=== PATIENT | female | born 1985 | race Caucasian/White ===

== ENCOUNTER 2018-11-20 11:38 | Outpatient (CLI) | payer MEDICAID | END 2018-11-20 13:35 | disposition home or self-care (01) | LOC: OBT 11:38 → L-D 11:40 → OBT 13:35 | DX: O36.8130 Decreased fetal movements, third trimester, not applicable or unspecified (principal); Z3A.33 33 weeks gestation of pregnancy | CPT/HCPCS: 76815; 76818 ==

== ENCOUNTER 2018-12-13 11:00 | Outpatient (CLI) | payer MEDICAID ==
[2018-12-13 13:47] LABS: ADD MAN DIFF? NO
[2018-12-13 13:52] LABS: WHITE BLOOD COUNT 6.2 10^3/ul (4.8-10.8)
[2018-12-13 13:52] LABS: BASOPHILS % 0.3 % (0.0-2.0); EOSINOPHILS % 0.6 % (0.0-7.0); HEMATOCRIT 38.3 % (37.0-47.0); HEMOGLOBIN 12.7 g/dl (12.0-16.0); LYMPHOCYTES # 1.6 10^3/ul (0.8-2.9); LYMPHOCYTES % 26.3 % (15.0-51.0); MEAN CORPUSCULAR HEMOGLOBIN 32.2 pg (29.0-33.0); MEAN CORPUSCULAR HGB CONC 33.2 g/dl (32.0-37.0); MEAN CORPUSCULAR VOLUME 97.2 fl (82.0-101.0); MEAN PLATELET VOLUME 11.1 fl (7.4-10.4); MONOCYTE # 0.6 10^3/ul (0.3-0.9); NEUTROPHIL # 3.8 10^3/ul (1.6-7.5); NEUTROPHILS % 61.8 % (39.0-77.0); PLATELET COUNT 179 10^3/UL (140-415); RED BLOOD COUNT 3.94 10^6/ul (4.20-5.40); RED CELL DISTRIBUTION WIDTH 13.1 % (11.5-14.5)
[2018-12-13 14:05] LABS: ADD UMIC YES; UR ASCORBIC ACID NEGATIVE (NEGATIVE); UR BACTERIA FEW /HPF (NONE SEEN); UR BILIRUBIN (Dip) NEGATIVE (NEGATIVE); UR BLOOD (Dip) NEGATIVE (NEGATIVE); UR CLARITY CLEAR (CLEAR); UR COLOR STRAW (YELLOW); UR GLUCOSE (Dip) NEGATIVE (NEGATIVE); UR KETONES (Dip) NEGATIVE (NEGATIVE); UR LEUKOCYTE ESTERASE (Dip) TRACE Leu/ul (NEGATIVE); UR NITRITE (Dip) NEGATIVE (NEGATIVE); UR RBC 0 /HPF (0-5); UR SPECIFIC GRAVITY (Dip) 1.002 (1.003-1.030); UR TOTAL PROTEIN (Dip) NEGATIVE (NEGATIVE); UR UROBILINOGEN (Dip) NEGATIVE (NEGATIVE); UR WBC 0 /HPF (0-5)
[2018-12-13 14:10] LABS: ALANINE AMINOTRANSFERASE 13 IU/L (13-69); ALBUMIN 3.4 g/dl (3.3-4.9); ALBUMIN/GLOBULIN RATIO 1.09; ALKALINE PHOSPHATASE 265 IU/L (42-121); ANION GAP 7 (5-13); ASPARTATE AMINO TRANSFERASE 25 IU/L (15-46); BILIRUBIN,INDIRECT 0.3 mg/dl (0-1.1); BILIRUBIN,TOTAL 0.3 mg/dl (0.2-1.3); BLOOD UREA NITROGEN 10 mg/dl (7-20); CALCIUM 9.1 mg/dl (8.4-10.2); CARBON DIOXIDE 25 mmol/L (21-31); CHLORIDE 105 mmol/L (97-110); CREATININE 0.48 mg/dl (0.44-1.00); Estimated GFR > 60 mL/min (>60); GLUCOSE 73 mg/dl (70-220); SODIUM 137 mmol/L (135-144); TOTAL PROTEIN 6.5 g/dl (6.1-8.1); URIC ACID 3.8 mg/dl (3.1-7.9)
[2018-12-13 14:11] LABS: POTASSIUM 4.1 mmol/L (3.5-5.1)
[2018-12-13 14:12] LABS: INR 0.87; PROTIME 11.9 Sec (11.9-14.9); PT RATIO 0.9
[2018-12-13 14:13] LABS: PARTIAL THROMBOPLASTIN TIME 26.4 Sec (23.0-35.0)
== END 2018-12-13 14:52 | disposition home or self-care (01) ==
LOC: OBT 11:00 → L-D 11:00 → OBT 14:52
DX: O26.03 Excessive weight gain in pregnancy, third trimester (principal); O26.893 Other specified pregnancy related conditions, third trimester; G56.00 Carpal tunnel syndrome, unspecified upper limb; Z3A.36 36 weeks gestation of pregnancy
CPT/HCPCS: 36415; 76818; 80053; 81001; 84560; 85025; 85384; 85610; 85730

== ENCOUNTER 2018-12-18 04:15 | Inpatient (IN) | payer MEDICAID ==
[2018-12-18] MEDS ORDERED: CARBOPROST 250 MCG INJ IM ×2 (05:00→23:30)
[2018-12-18] MEDS ORDERED: MISOPROSTOL 200 MCG TAB PR ×2 (05:00→23:30)
[2018-12-18] MEDS ORDERED: METHYLERGONOVINE 0.2 MG INJ IM ×2 (05:00→23:30)
[2018-12-18] MEDS ORDERED: BUTORPHANOL 2 MG INJ IV (05:00)
[2018-12-18] MEDS ORDERED: IBUPROFEN 600 MG TAB PO (05:00)
[2018-12-18] MEDS ORDERED: LIDOCAINE 1% (MPF) 30 ML INJ INJ (05:00)
[2018-12-18] MEDS ORDERED: OXYTOCIN 30 UNITS/LR 500 ML IV ×2 (05:00→23:30)
[2018-12-18] MEDS: LACTATED RINGER'S 1,000 ML IV ×3 (05:33→20:53)
[2018-12-18] MEDS: AMPICILLIN 2 GM/NS (PMX) 100 ML IVPB (06:16)
[2018-12-18 06:17] LABS: ADD MAN DIFF? NO
[2018-12-18 06:30] LABS: BASOPHILS % 0.2 % (0.0-2.0); EOSINOPHILS # 0.1 10^3/ul (0.0-0.5); HEMATOCRIT 38.7 % (37.0-47.0); HEMOGLOBIN 13.2 g/dl (12.0-16.0); LYMPHOCYTES # 1.8 10^3/ul (0.8-2.9); LYMPHOCYTES % 28.6 % (15.0-51.0); MEAN CORPUSCULAR HEMOGLOBIN 32.4 pg (29.0-33.0); MEAN CORPUSCULAR HGB CONC 34.1 g/dl (32.0-37.0); MEAN CORPUSCULAR VOLUME 95.1 fl (82.0-101.0); MEAN PLATELET VOLUME 10.9 fl (7.4-10.4); MONOCYTE # 0.6 10^3/ul (0.3-0.9); MONOCYTES % 9.6 % (0.0-11.0); NEUTROPHIL # 3.8 10^3/ul (1.6-7.5); NEUTROPHILS % 59.8 % (39.0-77.0); PLATELET COUNT 174 10^3/UL (140-415); RED BLOOD COUNT 4.07 10^6/ul (4.20-5.40)
[2018-12-18 06:30] LABS: WHITE BLOOD COUNT 6.3 10^3/ul (4.8-10.8)
[2018-12-18 06:45] LABS: INR 0.84; PROTIME 11.6 Sec (11.9-14.9); PT RATIO 0.9
[2018-12-18 06:46] LABS: PARTIAL THROMBOPLASTIN TIME 26.6 Sec (23.0-35.0)
[2018-12-18] MEDS: OXYTOCIN 30 UNITS/LR 500 ML IV ×4 (08:34→20:40)
[2018-12-18] MEDS: AMPICILLIN 1 GM/NS (PMX) 50 ML IVPB ×4 (09:32→21:00)
[2018-12-18 21:50] LABS: RAPID PLASMA REAGIN NONREACTIVE (NR)
[2018-12-18] MEDS ORDERED: LACTATED RINGER'S 1,000 ML IV* (23:03)
[2018-12-18] MEDS ORDERED: DEXTROSE 5%-LR 1,000 ML IV (23:03)
[2018-12-18] MEDS ORDERED: ONDANSETRON 4 MG INJ IV (23:30)
[2018-12-18] MEDS ORDERED: ZOLPIDEM 5 MG TAB PO (23:30)
[2018-12-18] MEDS ORDERED: MAGNESIUM HYDROXIDE 30ML CUP PO (23:30)
[2018-12-18] MEDS ORDERED: WITCH HAZEL/GLYCERIN PAD PR (23:30)
[2018-12-18] MEDS ORDERED: ACETAMINOPHEN 325 MG TAB PO (23:30)
[2018-12-18] MEDS ORDERED: DIPHENHYDRAMINE 50 MG INJ IV (23:30)
[2018-12-18] MEDS ORDERED: OXYCODONE/ASPIRIN (4.88/325) TAB PO (23:30)
[2018-12-18] MEDS ORDERED: DIBUCAINE 1% 30 GM OINT TOP (23:30)
[2018-12-19] MEDS: IBUPROFEN 600 MG TAB PO ×5 (00:10→23:22)
[2018-12-19] MEDS: BENZOCAINE 20% 56 ML SPRAY TOP (00:11)
[2018-12-19 08:51] LABS: ADD MAN DIFF? NO
[2018-12-19 08:53] LABS: BASOPHILS % 0.2 % (0.0-2.0); EOSINOPHILS % 0.2 % (0.0-7.0); HEMATOCRIT 34.1 % (37.0-47.0); HEMOGLOBIN 11.5 g/dl (12.0-16.0); LYMPHOCYTES # 2.1 10^3/ul (0.8-2.9); LYMPHOCYTES % 18.4 % (15.0-51.0); MEAN CORPUSCULAR HEMOGLOBIN 32.8 pg (29.0-33.0); MEAN CORPUSCULAR HGB CONC 33.7 g/dl (32.0-37.0); MEAN CORPUSCULAR VOLUME 97.2 fl (82.0-101.0); MEAN PLATELET VOLUME 10.9 fl (7.4-10.4); MONOCYTE # 0.7 10^3/ul (0.3-0.9); MONOCYTES % 6.3 % (0.0-11.0); NEUTROPHIL # 8.5 10^3/ul (1.6-7.5); PLATELET COUNT 162 10^3/UL (140-415); RED BLOOD COUNT 3.51 10^6/ul (4.20-5.40); RED CELL DISTRIBUTION WIDTH 13.2 % (11.5-14.5)
[2018-12-19 08:53] LABS: WHITE BLOOD COUNT 11.5 10^3/ul (4.8-10.8)
[2018-12-19] MEDS: LANOLIN HPA 1 PKT TOP (17:37)
[2018-12-20] MEDS: IBUPROFEN 600 MG TAB PO ×3 (05:32→17:27)
[2018-12-20] MEDS: MEASLES,MUMPS,RUBELLA VACCINE INJ SC* (08:11)
[2018-12-20] MEDS: SENNA/DOCUSATE NA (8.6MG/50MG) TAB PO (08:23)
[2018-12-20] MEDS: DIPHTH/TET/ACEL PERTUSS (ADULT) 0.5 ML VIAL IM* (10:18)
== END 2018-12-20 20:30 | disposition home or self-care (01) | DRG 807 ==
LOC: OBT 04:15 → L-D 04:15 → OBT 04:52 → L-D 04:52 → PP1 22:20
PROVIDERS: Obstetrics & Gynecology
PROC: 10E0XZZ Delivery of Products of Conception, External Approach (ICD-10-PCS; principal; 2018-12-18)
DX: O69.1XX0 Labor and delivery complicated by cord around neck, with compression, not applicable or unspecified (principal); Z37.0 Single live birth; Z3A.37 37 weeks gestation of pregnancy
CPT/HCPCS: 76815; 76818; 85025; 85610; 85730; 86592; 86850; 86900; 86901; 90715; 99464